=== PATIENT | male | born 1975 ===

== ENCOUNTER 2019-12-18 12:48 | Emergency (ER) | payer SELFPAY ==
[~2019-12-18] VITALS: Ht 182.9 cm; Wt 87.0 kg
[2019-12-18 12:59] VITALS: Ht 182.9 cm; Wt 87.0 kg
[2019-12-18] MEDS ORDERED: ALBUTEROL SULF8.5 GM INH (13:02)
[2019-12-18 13:53] LABS: BACTERIA FEW /hpf (NEGATIVE); BILIRUBIN NEGATIVE (NEGATIVE); EPITHELIAL CELLS 0-5 /hpf (0-5); GLUCOSE NEGATIVE (NEGATIVE); KETONE SMALL mg/dL (NEGATIVE); NITRITE NEGATIVE (NEGATIVE); RED CELLS - URINE OCC /hpf (0-5); SPECIFIC GRAVITY 1.025 (1.005-1.020); UROBILINOGEN NORMAL (NORMAL); WHITE CELLS - URINE 0-5 /hpf (NEGATIVE)
[2019-12-18 16:06] LABS: BASOPHILS 0.1 % (0-2); EOSINOPHILS 2.7 % (0-7); HEMATOCRIT 50.3 % (42.0-54.0); HEMOGLOBIN 16.6 g/dL (13.5-17.5); IMMATURE GRANULOCYTES 0.4 % (0-5); LYMPHOCYTES 26.5 % (15-50); MCH 30.2 pg (26.0-34.0); MCV 91.5 fL (80.0-100.0); MEAN PLATELET VOLUME 10.7 fL (7.4-10.4); MONOCYTES 4.7 % (2-11); NEUTROPHILS 65.6 % (40-80); PLATELET COUNT 266 10x3/uL (130-400); RDW 14.2 % (11.5-14.5); WBC 13.6 10x3/uL (4.8-10.8)
[2019-12-18 16:19] LABS: CALC OSMOLALITY 283 mosm/kg (275-300); CARBON DIOXIDE 27.6 mmol/L (21.0-32.0); CHLORIDE - SERUM 103 mmol/L (98-107); GLUCOSE 139 mg/dL (74-106); POTASSIUM - SERUM 3.3 mmol/L (3.5-5.1); SODIUM 141 mmol/L (136-145); UREA NITROGEN 14 mg/dL (7-18); eGFR NON AFRICAN AMERICAN 87 mL/min (90-120)
[2019-12-18 16:27] LABS: ALBUMIN 3.7 g/dL (3.4-5.0); ALKALINE PHOSPHATASE 76 U/L (30-120); ALT (SGPT) 66 U/L (10-68); BILIRUBIN - TOTAL 0.59 mg/dL (0.2-1.3); PROTEIN - SERUM 7.7 g/dL (6.4-8.2)
[2019-12-18] MEDS ORDERED: CIPRO500 MG PO (16:34)
[2019-12-18 17:00] VITALS: BP 123/86
== END 2019-12-18 17:01 | disposition home or self-care (01) ==
LOC: D.ER 12:48
PROVIDERS: Family Medicine
DX: N34.2 Other urethritis (principal); R73.9 Hyperglycemia, unspecified; D72.829 Elevated white blood cell count, unspecified; S91.332A Puncture wound without foreign body, left foot, initial encounter; R74.0 Nonspecific elevation of levels of transaminase and lactic acid dehydrogenase [LDH]; J45.909 Unspecified asthma, uncomplicated; Z72.0 Tobacco use